=== PATIENT | female | born 1965 | race Caucasian/White ===

== ENCOUNTER 2017-06-13 11:27 | Emergency (ER) | payer OTHER ==
[2017-06-13] MEDS ORDERED: AZITHROMYCIN 250 MG TAB ONE (12:28)
[2017-06-13] MEDS ORDERED: IPRATROPIUM BROM 0.5MG/2.5ML ONE (12:28)
[2017-06-13] MEDS ORDERED: ALBUTEROL 2.5 MG/3 ML NEB SOL ONE ×2 (12:28→13:56)
[2017-06-13] MEDS ORDERED: METHYLPREDNISOLONE 125 MG INJ ONE (12:28)
[2017-06-13] MEDS ORDERED: TETANUS & DIPHTHERIA TOX,ADULT 0.5 ML VIAL ONE (12:29)
[2017-06-13] MEDS ORDERED: NA CHLORIDE 0.9% 1,000 ML ONE (12:29)
[2017-06-13] MEDS ORDERED: CEFTRIAXONE/SWI 1gm 1 GM/10 ML SYR ONE (12:29)
[2017-06-13 12:55] LABS: Absolute Lymphocytes (CBC) 1.5 K/uL (0.7-4.9); Absolute Monocytes 0.4 K/uL (0.1-1.3); Absolute Neutrophil 3.9 K/uL (1.8-8.0); Basophils % 1.2 % (0-1.3); Eosinophils % 5.6 % (0-4.4); Hematocrit 41.1 % (36.0-45.0); Lymphocytes % 23.8 % (15.3-44.8); MCH 27.4 pg (27.0-35.0); MCV 83.4 fL (80-100); MPV 9.6 fL (7.6-11.3); Monocytes % 6.1 % (3.3-12.3); RBC Red Blood Cell Count 4.92 M/uL (3.86-4.86)
[2017-06-13] MEDS ORDERED: MORPHINE 4 MG/ML SYR ONE (12:55)
[2017-06-13] MEDS ORDERED: predniSONE 20 MG TAB ONE (12:55)
[2017-06-13] MEDS ORDERED: ONDANSETRON 4 MG/2 ML VIAL ONE (12:55)
[2017-06-13 13:01] LABS: Protime INR 1.06
[2017-06-13 13:08] LABS: Bicarbonate 26 mEq/L (21-31); Glucose Level 81 mg/dL (65-120); Potassium 3.9 mEq/L (3.6-5.0); Sodium Level 139 mEq/L (135-145)
--- NOTE | 2017-06-13 13:13 | RAD REPORT ---
EXAM DESCRIPTION: RAD - Chest Single View - 06/13/2017 12:50 pm CLINICAL HISTORY: Cough COMPARISON: None. FINDINGS: Portable technique limits examination quality. The lungs are grossly clear. The heart is normal in size. No displaced fractures.Hardware plate noted in the cervical region. IMPRESSION: No acute intrathoracic process suspected.
[2017-06-13 13:14] LABS: ALT/SGPT 71 IU/L (10-60); AST/SGOT 71 IU/L (10-42); Alkaline Phosphatase 78 IU/L (42-121); BUN Blood Urea Nitrogen 18 mg/dL (6-20); Bilirubin Direct 0.1 mg/dL (0-0.2); Bilirubin Total 0.5 mg/dL (0.3-1.2); Creatine Phosphokinase 123 IU/L (22-269); Magnesium 1.8 mg/dL (1.8-2.5); Protein, Total 6.8 g/dL (6.0-8.3)
[2017-06-13 13:16] LABS: CKMB Creatine Kinase MB 2.8 ng/ml (0.3-4.0)
--- NOTE | 2017-06-13 13:54 | ER ---
Nurse's Notes [facility] Name: Emilia Erickson Age: 51 yrs Sex: Female : 1965 Arrival Date: 06/13/2017 Time: 11:34 Bed 7 Private MD: None, None Diagnosis: Chronic obstructive pulmonary disease with (acute) exacerbation;Tobacco abuse counseling;Insect bite (nonvenomous) of forearm;Low back pain;Essential (primary) hypertension Presentation: 06/13 11:37 Presenting complaint: Patient states: I got bit by a spider about and hour ago on my la1 right arm and now It feels numb/tingly and is hurting. I also think it flared up my asthma because I feel SOB. pt airway patent, respirations even and unlabored. Transition of care: patient was not received from another setting of care. Onset of symptoms was June 13, 2017. Initial Sepsis Screen: Does the patient meet any 2 criteria? No. Patient's initial sepsis screen is negative. Does the patient have a suspected source of infection? No. Patient's initial sepsis screen is negative. Care prior to arrival: None. 11:37 Method Of Arrival: Wheelchair la1 11:37 Acuity: NURA 3 la1 Triage Assessment: 13:03 Bite description: bite sustained to dorsal aspect of right forearm by a spider, animal ae1 information: vaccination(s) is not up to date. 13:03 General: Appears uncomfortable, obese, Behavior is cooperative, anxious. Pain: ae1 Complains of pain in dorsal aspect of right forearm. EENT: No signs and/or symptoms were reported regarding the EENT system. Neuro: Level of Consciousness is awake, alert, obeys commands, Oriented to person, place, time, situation. Cardiovascular: Heart tones S1 S2 present. Respiratory: Airway is patent Respiratory effort is even, unlabored, Respiratory pattern is regular, symmetrical, Breath sounds with wheezes bilaterally. GI: Abdomen is round obese, Bowel sounds. : No signs and/or symptoms were reported regarding the genitourinary system. Derm: Wound noted LOLIS lower extremities are dry, scaly and reddened. Musculoskeletal: Swelling present in dorsal aspect of right forearm. Historical: - Allergies: 11:38 Sulfa (Sulfonamide Antibiotics); la1 - PMHx: 11:38 Asthma; COPD; Back pain; Hepatitis; Hypertension; la1 - Immunization history:: Adult Immunizations up to date. - Social history:: Smoking status: Patient uses tobacco products, smokes one-half pack cigarettes per day. Screenin:02 Abuse screen: Denies threats or abuse. Nutritional screening: No deficits noted. ae1 Tuberculosis screening: No symptoms or risk factors identified. Fall Risk None identified. Assessment: 14:07 Reassessment: Patient c/o returning shortness of breath, provider notified, new orders ae1 received. 14:53 Reassessment: Patient is awaiting additional request for a prescription for pain ae1 medication. 15:35 Derm: Skin is intact, Skin is pink, warm \T\ dry. ae1 Vital Signs: 11:38 BP 150 / 81; Pulse 75; Resp 19; Temp 97.2(TE); Pulse Ox 100% on R/A; Weight 120.2 kg; la1 Height 5 ft. 5 in. (165.10 cm); 13:46 BP 116 / 73; Pulse 88; Resp 21; Pulse Ox 97% on R/A; ae1 11:38 Body Mass Index 44.10 (120.20 kg, 165.10 cm) la1 ED Course: 11:34 Patient arrived in ED. mr 11:34 None, None is Private Physician. mr 11:38 Triage completed. la1 11:39 Arm band placed on right wrist. la1 11:49 Yuriy Padilla MD is Attending Physician. daiana 12:24 Sang Pinedo, PORTER is Primary Nurse. ae1 12:42 Inserted saline lock: 22 gauge in left antecubital area, using aseptic technique. hb ,using aseptic technique. IV inserted by quality assurance intern David. Blood collected. 12:48 X-ray completed. Portable x-ray completed in exam room. kp1 12:48 XRAY Chest (1 view) In Process Unspecified. EDMS 13:03 Placed in gown. Bed in low position. Call light in reach. Side rails up X 1. Cardiac ae1 monitor on. Pulse ox on. NIBP on. 13:53 Fareed Wesley MD is Referral Physician. daiana 15:35 No provider procedures requiring assistance completed. IV discontinued, intact, ae1 bleeding controlled, No redness/swelling at site. Pressure dressing applied. Administered Medications: 12:32 Drug: Albuterol - atroVENT (3:1) (2.5 mg - 0.5 mg) 3 ml Route: Nebulizer; ae1 14:34 Follow up: Response: Wheezing diminished ae1 12:36 Drug: Tetanus-Diphtheria Toxoid Adult 0.5 ml {Supplier Relationship Director: [employer]. Exp: ae1 09/18/2019. Lot #: [id number]. } Route: IM; Site: right deltoid; 14:34 Follow up: Response: No adverse reaction ae1 12:38 Drug: SOLU-Medrol 125 mg Route: IVP; Site: left antecubital; ae1 14:34 Follow up: Response: No adverse reaction ae1 12:48 Drug: NS 0.9% 1000 ml Route: IV; Rate: 75 ml/hr; Site: left antecubital; ae1 12:48 Drug: Rocephin - (cefTRIAXone) 1 grams Route: IVPB; Infused Over: 30 mins; Site: left ae1 antecubital; 12:55 Drug: Zofran 4 mg Route: IVP; Site: left antecubital; ae1 14:33 Follow up: Response: No adverse reaction ae1 12:57 Drug: Zithromax 500 mg Route: PO; ae1 14:34 Follow up: Response: No adverse reaction ae1 12:57 Drug: predniSONE 40 mg Route: PO; ae1 14:35 Follow up: Response: No adverse reaction ae1 12:58 Drug: morphine 2 mg Route: IVP; Site: left antecubital; ae1 14:35 Follow up: Response: Pain is decreased ae1 13:55 Drug: Albuterol 5 mg Route: Inhalation; ae1 14:15 Drug: Decadron - Dexamethasone 10 mg Route: IVP; Site: left antecubital; ae1 14:35 Follow up: Response: No adverse reaction ae1 14:34 Not Given (Patient is discharged. ): morphine 2 mg IVP once ae1 Outcome: 13:53 Discharge ordered by MD. ahmadi 15:36 Discharged to home ambulatory. ae1 15:36 Condition: stable 15:36 Discharge instructions given to patient, Instructed on discharge instructions, follow up and referral plans. medication usage, Demonstrated understanding of instructions. 15:36 Patient left the ED. ae1 Signatures: Dispatcher [employer] EDMS Yuriy Padilla MD MD cha Rivera, Maria mr Attema, Lee RN RN la1 Alfred, Nubia, RN RN hb Sang Pinedo, RN RN ae1 Esther Avila 1
--- NOTE | 2017-06-13 13:54 | EDPHYS ---
Physician Documentation [facility] Name: Emilia Erickson Age: 51 yrs Sex: Female : 1965 Arrival Date: 06/13/2017 Time: 11:34 Bed 7 Private MD: None, None ED Physician Yuriy Padilla HPI: 06/13 12:28 This 51 yrs old Female presents to ER via Wheelchair with complaints of daiana Asthma Exacerbation, Insect Bite. 12:28 The patient presents to the emergency department with wheezing, Current therapy: daiana albuterol inhaler. Onset: The symptoms/episode began/occurred just prior to arrival, this morning. Modifying factors: The symptoms are alleviated by nothing, the symptoms are aggravated by nothing. Associated signs and symptoms: The patient has no apparent associated signs or symptoms. The patient has experienced similar episodes in the past, multiple times. Historical: - Allergies: 11:38 Sulfa (Sulfonamide Antibiotics); la1 - PMHx: 11:38 Asthma; COPD; Back pain; Hepatitis; Hypertension; la1 - Immunization history:: Adult Immunizations up to date. - Social history:: Smoking status: Patient uses tobacco products, smokes one-half pack cigarettes per day. ROS: 12:29 Constitutional: Negative for fever, chills, and weight loss, Eyes: Negative for injury, daiana pain, redness, and discharge, ENT: Negative for injury, pain, and discharge, Neck: Negative for injury, pain, and swelling, Cardiovascular: Negative for chest pain, palpitations, and edema, Abdomen/GI: Negative for abdominal pain, nausea, vomiting, diarrhea, and constipation, Back: Negative for injury and pain, : Negative for injury, bleeding, discharge, and swelling, MS/Extremity: Negative for injury and deformity, Skin: Negative for injury, rash, and discoloration, Neuro: Negative for headache, weakness, numbness, tingling, and seizure, Psych: Negative for depression, anxiety, suicide ideation, homicidal ideation, and hallucinations, Allergy/Immunology: Negative for hives, rash, and allergies, Endocrine: Negative for neck swelling, polydipsia, polyuria, polyphagia, and marked weight changes, Hematologic/Lymphatic: Negative for swollen nodes, abnormal bleeding, and unusual bruising. 12:29 Respiratory: Positive for cough, shortness of breath, wheezing, inspiratory, expiratory. Exam: 12:29 Constitutional: This is a well developed, well nourished patient who is awake, alert, daiana and in no acute distress. Head/Face: Normocephalic, atraumatic. Eyes: Pupils equal round and reactive to light, extra-ocular motions intact. Lids and lashes normal. Conjunctiva and sclera are non-icteric and not injected. Cornea within normal limits. Periorbital areas with no swelling, redness, or edema. ENT: Nares patent. No nasal discharge, no septal abnormalities noted. Tympanic membranes are normal and external auditory canals are clear. Oropharynx with no redness, swelling, or masses, exudates, or evidence of obstruction, uvula midline. Mucous membranes moist. Neck: Trachea midline, no thyromegaly or masses palpated, and no cervical lymphadenopathy. Supple, full range of motion without nuchal rigidity, or vertebral point tenderness. No Meningismus. Chest/axilla: Normal chest wall appearance and motion. Nontender with no deformity. No lesions are appreciated. Cardiovascular: Regular rate and rhythm with a normal S1 and S2. No gallops, murmurs, or rubs. Normal PMI, no JVD. No pulse deficits. Abdomen/GI: Soft, non-tender, with normal bowel sounds. No distension or tympany. No guarding or rebound. No evidence of tenderness throughout. Back: No spinal tenderness. No costovertebral tenderness. Full range of motion. Skin: Warm, dry with normal turgor. Normal color with no rashes, no lesions, and no evidence of cellulitis. Neuro: Awake and alert, GCS 15, oriented to person, place, time, and situation. Cranial nerves II-XII grossly intact. Motor strength 5/5 in all extremities. Sensory grossly intact. Cerebellar exam normal. Normal gait. Psych: Awake, alert, with orientation to person, place and time. Behavior, mood, and affect are within normal limits. 12:29 Musculoskeletal/extremity: Extremities: erythema, swelling, tenderness, ROM: full active range of motion, full passive range of motion, Circulation is intact in all extremities. Sensation intact. Compartment Syndrome exam of affected extremity: is normal. DVT Exam: no tenderness, negative Homans' sign noted on exam, no appreciated bluish discoloration, no erythema, no increased warmth, pain, swelling. Vital Signs: 11:38 BP 150 / 81; Pulse 75; Resp 19; Temp 97.2(TE); Pulse Ox 100% on R/A; Weight 120.2 kg; la1 Height 5 ft. 5 in. (165.10 cm); 13:46 BP 116 / 73; Pulse 88; Resp 21; Pulse Ox 97% on R/A; ae1 11:38 Body Mass Index 44.10 (120.20 kg, 165.10 cm) la1 MDM: 11:50 Patient medically screened. [facility] 12:31 Data reviewed: vital signs, nurses notes, lab test result(s), EKG, radiologic studies, daiana plain films. 06/13 12:20 Order name: Basic Metabolic Panel [facility] 06/13 12:20 Order name: BNP; Complete Time: 13:49 [facility] 06/13 12:20 Order name: CBC with Diff; Complete Time: 13:49 [facility] 06/13 12:20 Order name: Ckmb; Complete Time: 13:49 [facility] 06/13 12:20 Order name: CPK; Complete Time: 13:49 [facility] 06/13 12:20 Order name: LFT's; Complete Time: 13:49 [facility] 06/13 12:20 Order name: Magnesium; Complete Time: 13:49 [facility] 06/13 12:20 Order name: PT-INR; Complete Time: 13:49 [facility] 06/13 12:20 Order name: Ptt, Activated; Complete Time: 13:49 [facility] 06/13 12:20 Order name: Troponin (emerg Dept Use Only); Complete Time: 13:49 [facility] 06/13 12:20 Order name: XRAY Chest (1 view); Complete Time: 13:49 [facility] 06/13 12:21 Order name: Basic Metabolic Panel; Complete Time: 13:49 EDMS 06/13 12:20 Order name: EKG; Complete Time: 12:21 [facility] 06/13 12:20 Order name: Cardiac monitoring; Complete Time: 13:02 [facility] 06/13 12:20 Order name: EKG - Nurse/Tech; Complete Time: 14:01 [facility] 06/13 12:20 Order name: IV Saline Lock; Complete Time: 12:47 [facility] 06/13 12:20 Order name: Labs collected and sent; Complete Time: 12:47 [facility] 06/13 12:20 Order name: O2 Per Protocol; Complete Time: 12:47 [facility] 06/13 12:20 Order name: O2 Sat Monitoring; Complete Time: 12:47 daiana 06/13 12:20 Order name: Urine Dipstick-Ancillary (obtain specimen) [facility] Administered Medications: 12:32 Drug: Albuterol - atroVENT (3:1) (2.5 mg - 0.5 mg) 3 ml Route: Nebulizer; ae1 14:34 Follow up: Response: Wheezing diminished ae1 12:36 Drug: Tetanus-Diphtheria Toxoid Adult 0.5 ml {Electrical Manager: [employer]. Exp: ae1 09/18/2019. Lot #: [id number]. } Route: IM; Site: right deltoid; 14:34 Follow up: Response: No adverse reaction ae1 12:38 Drug: SOLU-Medrol 125 mg Route: IVP; Site: left antecubital; ae1 14:34 Follow up: Response: No adverse reaction ae1 12:48 Drug: NS 0.9% 1000 ml Route: IV; Rate: 75 ml/hr; Site: left antecubital; ae1 12:48 Drug: Rocephin - (cefTRIAXone) 1 grams Route: IVPB; Infused Over: 30 mins; Site: left ae1 antecubital; 12:55 Drug: Zofran 4 mg Route: IVP; Site: left antecubital; ae1 14:33 Follow up: Response: No adverse reaction ae1 12:57 Drug: Zithromax 500 mg Route: PO; ae1 14:34 Follow up: Response: No adverse reaction ae1 12:57 Drug: predniSONE 40 mg Route: PO; ae1 14:35 Follow up: Response: No adverse reaction ae1 12:58 Drug: morphine 2 mg Route: IVP; Site: left antecubital; ae1 14:35 Follow up: Response: Pain is decreased ae1 13:55 Drug: Albuterol 5 mg Route: Inhalation; ae1 14:15 Drug: Decadron - Dexamethasone 10 mg Route: IVP; Site: left antecubital; ae1 14:35 Follow up: Response: No adverse reaction ae1 14:34 Not Given (Patient is discharged. ): morphine 2 mg IVP once ae1 Disposition: 06/13/17 13:53 Discharged to Home. Impression: Chronic obstructive pulmonary disease with (acute) exacerbation, Tobacco abuse counseling, Insect bite (nonvenomous) of forearm, Low back pain, Essential (primary) hypertension. - Condition is Fair. - Discharge Instructions: Asthma, Adult, Chronic Bronchitis, Chronic Obstructive Pulmonary Disease, How to Use an Inhaler, Smoking Cessation, Smoking Hazards, Asthma, Adult, [id number], Smoking, You Can Quit, [id number], Cough, Adult, [id number], How to Use a Nebulizer, Cough, Adult. - Prescriptions for Albuterol Sulfate 2.5 mg /3 mL (0.083 %) Inhalation Solution for Nebulization - inhale 1 unit by NEBULIZATION route every 8 hours As needed; 2 box. Prednisone 20 mg Oral Tablet - take 2 tablet by ORAL route once daily for 5 days; 10 tablet. Albuterol Sulfate 90 mcg/actuation Inhalation - inhale 1-2 puff by INHALATION route every 4-6 hours; 2 Inhaler. Zithromax 500 mg Oral Tablet - take 1 tablet by ORAL route once daily for 5 days; 5 tablet. Toprol XL 50 mg Oral Tablet - take 1 tablet by ORAL route once daily; 20 tablet. Tylenol- Codeine #3 300-30 mg Oral Tablet - take 2 tablets by ORAL route every 6 hours As needed; 20 tablet. Lisinopril 10 mg Oral Tablet - take 1 tablet by ORAL route once daily; 20 tablet. - Medication Reconciliation Form, Thank You Letter, Antibiotic Education, Prescription Opioid Use, Work release form form. - Follow up: Private Physician; When: 2 - 3 days; Reason: Recheck today's complaints, Continuance of care, Re-evaluation by your physician. Follow up: Fareed Wesley; When: 2 - 3 days; Reason: Recheck today's complaints, Re-evaluation by your physician. - Problem is new. - Symptoms have improved. Signatures: Dispatcher [employer] Yuriy Lora MD MD cha Attema, Lee RN RN la1 Sang Pinedo RN RN ae1
[2017-06-13] MEDS ORDERED: DEXAMETHASONE 10 MG/ML VIAL ONE (14:13)
--- NOTE | 2017-06-14 16:11 | EKG ---
Test Date: 2017-06-13 Test Time: 13:57:48 Cut Out Stitcher: BISI MEASUREMENT RESULTS: Intervals: Rate: 64 OR: 148 QRSD: 88 QT: 406 QTc: 418 [place]: P: 25 OR: 148 QRS: 5 T: 15 INTERPRETIVE STATEMENTS: Normal sinus rhythm Normal ECG No previous ECG available for comparison Electronically Signed On 06-14-17 16:11:14 CDT by Filippo Vides
== END 2017-06-13 15:36 | disposition home or self-care (01) ==
LOC: ER 11:27
DX: J44.1 Chronic obstructive pulmonary disease with (acute) exacerbation (principal); S50.869A Insect bite (nonvenomous) of unspecified forearm, initial encounter; M54.5 Low back pain; I10 Essential (primary) hypertension; F17.210 Nicotine dependence, cigarettes, uncomplicated; Z71.6 Tobacco abuse counseling; Z88.2 Allergy status to sulfonamides; Z23 Encounter for immunization
CPT/HCPCS: 36415; 71045; 80048; 80076; 82550; 82553; 83735; 83880; 84484; 85025; 85610; 85730; 90714; 93005; 94640; 96374; 96375; 99285; J0696; J1100; J2405; J2930; J7030; J7512